=== PATIENT | female | born 1965 | race Two or more races ===

== ENCOUNTER 2024-01-08 21:17 | Emergency (ER) | payer OTHER ==
[~2024-01-08] VITALS: Ht 154.9 cm; Wt 54.4 kg
[2024-01-08] MEDS ORDERED: FOSAMAX70 MG (21:30)
[2024-01-08] MEDS ORDERED: [UNRECOGNIZED DRUG - REMARK] (21:30)
[2024-01-08] MEDS ORDERED: MEDROL4 MG PO (21:30)
[2024-01-08] MEDS ORDERED: METHYLPREDNISOLONE SOD SUCC 40 MG VIAL IM ONE (21:45)
== END 2024-01-08 22:10 | disposition home or self-care (01) ==
LOC: ER 21:19 → EMR PED 21:19 → ER 21:48
DX: M19.90 Unspecified osteoarthritis, unspecified site (principal); E11.9 Type 2 diabetes mellitus without complications; Z79.84 Long term (current) use of oral hypoglycemic drugs

== ENCOUNTER 2024-02-16 17:00 | Emergency (ER) | payer OTHER ==
[~2024-02-16] VITALS: Ht 160 cm; Wt 54.4 kg
[~2024-02-16 17:00] MED LIST: FOSAMAX70 MG; MEDROL4 MG PO; [UNRECOGNIZED DRUG - REMARK]
[2024-02-16] MEDS ORDERED: FOSAMAX70 MG PO (18:13)
[2024-02-16] MEDS ORDERED: KETOROLAC TROMETHAMINE 30 MG VIAL IM STA (20:40)
[2024-02-16] MEDS ORDERED: DEXAMETHASONE SODIUM PHOSPHATE 4 MG/ML VIAL IM STA (20:41)
== END 2024-02-16 22:12 | disposition home or self-care (01) ==
LOC: ER 17:02
DX: M79.604 Pain in right leg (principal)

== ENCOUNTER → 2024-06-28 | Emergency (ER) | payer OTHER ==
[~2024-06-28] VITALS: Ht 160 cm; Wt 57.2 kg
[~2024-06-28] MED LIST changes: +FOSAMAX70 MG PO
[2024-06-28 07:50] LABS: HEMATOCRIT 38.5 % (36.0-45.00); HEMOGLOBIN 13.1 g/dL (12.0-15.00); MEAN CELL VOLUME 99.3 fL (80.00-100.00); MEAN CORPUSCULAR HEMOGLOBIN 33.7 pg (27.00-32.0); MEAN CORPUSCULAR HGB CONC 33.9 g/dl (32.0-36.0); PLATELET COUNT 202 K/uL (150-450); RED BLOOD COUNT 3.88 M/uL (4.00-6.00); RED CELL DISTRIBUTION WIDTH 13.8 % (11.5-14.5)
[2024-06-28 08:45] LABS: COVID-19 AG NEGATIVE (NEGATIVE)
[2024-06-28 08:57] LABS: INFLUENZA A AG NEGATIVE (NEGATIVE)
== END | disposition home or self-care (01) ==
LOC: ER 06:51
PROVIDERS: Emergency Medicine
DX: J06.9 Acute upper respiratory infection, unspecified (principal); Z20.822 Contact with and (suspected) exposure to COVID-19

== ENCOUNTER 2024-10-03 06:09 | Emergency (ER) | payer OTHER ==
[~2024-10-03] VITALS: Ht 162.6 cm; Wt 57.2 kg
[2024-10-03] MEDS ORDERED: OMEGA-31000 MG (06:14)
[2024-10-03] MEDS ORDERED: SIMVASTATIN5 MG (06:14)
[2024-10-03] MEDS ORDERED: DIALYVITE TABL1 EACH (06:14)
[2024-10-03] MEDS ORDERED: METHOTREXATE2.5 MG (06:15)
[2024-10-03] MEDS ORDERED: DIPHENHYDRAMINE HCL 12.5 MG/5 ML BLIST.PACK PO STA (07:42)
[2024-10-03] MEDS ORDERED: ACETAMINOPHEN 500 MG GEL..CAP PO STA (07:43)
[2024-10-03] MEDS ORDERED: ACETAMINOPHEN 500 MG GEL..CAP PO ONE (07:48)
[2024-10-03] MEDS ORDERED: PHENAGIL TABLE1 EACH PO (07:48)
[2024-10-03] MEDS ORDERED: DIPHENHYDRAMINE HCL 12.5 MG/5 ML BLIST.PACK PO ONE (07:49)
== END 2024-10-03 08:17 ==
LOC: ER 06:13
DX: J32.9 Chronic sinusitis, unspecified (principal); R21 Rash and other nonspecific skin eruption